=== PATIENT | female | born 1995 | race Caucasian/White ===

== ENCOUNTER 2024-04-18 15:52 | Emergency (ER) | payer MEDICAID ==
[~2024-04-18] VITALS: Ht 157.5 cm; Wt 71.4 kg
[2024-04-18 15:58] VITALS: BP 134/91; PULSE 87; RESP 18; TEMP 98; O2SAT 100
== END 2024-04-18 16:25 | disposition left against medical advice (07) ==
LOC: MED 15:52
DX: R10.2 Pelvic and perineal pain (principal); Z53.21 Procedure and treatment not carried out due to patient leaving prior to being seen by health care provider